=== PATIENT | female | born 1975 | race Caucasian/White ===

== ENCOUNTER 2022-02-28 16:34 | Emergency (ER) | payer BC, SELFPAY ==
--- NOTE | 2022-02-28 16:58 | ED.EYEPROB ---
HPI - Eye Problem General Chief complaint: Eye Problems Stated complaint: eye irritation Time Seen by Provider: 02/28/22 16:58 Source: patient Mode of arrival: ambulatory Limitations: no limitations History of Present Illness HPI Narrative: Ms. Ann is a 46-year-old female patient presenting to the clinic today with complaints of eye irritation and sores on her face. She reports that her daughter was positive for a bacterial staph infection. She reports that she has had some green eye drainage today and irritation of the right eye as well as some scabbed over sores to the right side of the orbit/temporal. She denies any fever or chills. Related Data Home Medications Medication Instructions Recorded Confirmed budesonide 1 mg/2 mL suspension 0.5 mg inhalation DIRECTED 02/28/22 02/28/22 for nebulization (Pulmicort) montelukast 10 mg tablet 10 mg DAILY 02/28/22 02/28/22 Allergies Allergy/AdvReac Type Severity Reaction Status Date / Time SHELLFISH Allergy Mild Uncoded 02/10/17 10:20 Review of Systems Review of Systems: Pertinent positives per HPI. Patient denies any fever, chills, rash, headache, visual changes, dizziness, cough, runny nose, sore throat, shortness of breath, chest pain, palpitations, nausea, vomiting, diarrhea, constipation, abdominal pain, or any urinary issues. PMFSH Comments At the time of my signature, I reviewed and agree with the nursing past medical, surgical, social, and family history. There is no relevant family history pertinent to the patient complaint. Exam Narrative: General: Well-developed, well nourished, in no apparent distress Head: Normocephalic, atraumatic, red mildly raised scaly yellow skin sores that are tender to palpation to the right temporal/orbit Eyes: Pupils equally round and reactive to light bilaterally, EOM intact, left sclera and conjunctive clear, right sclera and conjunctive a injected with green mucopurulent discharge, lids normal Ears: TMs intact and clear, ear canals clear, no drainage, grossly hearing normal. Nose: Nares patent, no discharge, no inflammation, no sinus tenderness. Mouth: Oropharynx without lesions or masses, good dentition, MMM. Neck: Supple, trachea midline, no enlargement of anterior or posterior cervical nodes, no thyroid masses or goiter palpable. Cardio: Regular rate and rhythm, s1 and s2 normal, no murmur appreciated. Resp: Clear to auscultation bilaterally anteriorly and posteriorly, no rhonchi, rales, wheezing or rubs Course Course Emergency Course: Portions of this record may have been created with voice recognition software. Level of Care: Express Care Visit Vital Signs Vital signs: Vital signs reviewed MDM - Eye Problem MDM Narrative Medical decision making narrative: At the time of visit patient is resting comfortably on the exam table I suspect that she has a bacterial skin infection as well as bacterial conjunctivitis. I will send her in a prescription for some mupirocin cream and Polytrim eyedrops. Supportive measures were discussed with the patient she voiced understanding of discharge instructions and agrees to treatment plan. Differential Diagnosis Differential diagnosis: Likely conjunctivitis and other (Skin infection) Discharge Plan Discharge Clinical Impression: Bacterial infection of skin, Bacterial conjunctivitis Patient Disposition: Home, Self-Care Condition: Stable Instructions: Antibiotic Form, Conjunctivitis (ED) Additional Instructions: Apply mupirocin cream as prescribed Polytrim eyedrops as prescribed Practice good handwashing techniques Follow-up with your PCP in 3 to 5 days if symptoms persist or sooner if they worsen. Prescriptions: New polymyxin B sulf-trimethoprim [Polytrim] 10,000 unit- 1 mg/mL drops 1 drp RIGHT EYE Q3H 7 Days Qty: 10 0RF Rx Instructions: while awake; do not exceed 6 doses in 24 hours mupirocin 2 % ointment 1 applic topical B
[2022-02-28 17:01] VITALS: BP 139/86; PULSE 93; RESP 18; TEMP 36.7; O2SAT 98
== END 2022-02-28 17:15 | disposition home or self-care (01) ==
PROVIDERS: Emergency Provider Nurse Practitioner Family; PCP Family Medicine
DX: H10.9 Unspecified conjunctivitis (principal); L08.9 Local infection of the skin and subcutaneous tissue, unspecified; B96.89 Other specified bacterial agents as the cause of diseases classified elsewhere; J45.909 Unspecified asthma, uncomplicated
CPT/HCPCS: 99213; G0463

== ENCOUNTER 2023-06-12 18:12 | Emergency (ER) | payer BC, SELFPAY ==
--- NOTE | ~2023-06-12 | XR_ITS ---
EXAMINATION: XR chest 2V DATE: 06/12/2023 18:31 INDICATION: 10 days of cough and congestion TECHNIQUE: PA and lateral views of the chest were obtained. COMPARISON: None FINDINGS: The lungs are clear with no focal airspace opacities, pulmonary edema, pleural effusion or pneumothor ax. The cardiomediastinal silhouette is normal. Moderate thoracic spondylosis. IMPRESSION: 1. No acute cardiopulmonary disease. Reviewed, dictated and finalized at location [facility]
--- NOTE | 2023-06-12 18:13 | ED.URI ---
HPI - URI/Sore Throat General Chief Complaint: Upper Respiratory Infection Stated Complaint: Congestion,Cough,Runny Nose Time Seen by Provider: 06/12/23 18:18 Source: patient, RN notes reviewed and old records reviewed Mode of arrival: ambulatory Limitations: no limitations History of Present Illness HPI Narrative: 47-year-old female presents to the [facility] with complaints of cough, congestion, runny nose for 10 days. Has tried DayQuil. Has been using prescribed medications such as albuterol singular with no improvement. Denies any fever, chest pain, abdominal pain. No nausea vomiting or diarrhea. Related Data Home Medications Medication Instructions Recorded Confirmed albuterol sulfate 90 mcg/actuation 2 puff inhalation PRN PRN 06/12/23 06/12/23 aerosol inhaler Shortness Of Breath Or Wheezing budesonide-formoterol HFA 160 2 inh inhalation DAILY 06/12/23 06/12/23 mcg-4.5 mcg/actuation aerosol inhaler (Symbicort) montelukast 10 mg tablet 10 mg PO HS 06/12/23 06/12/23 Allergies Allergy/AdvReac Type Severity Reaction Status Date / Time iodine AdvReac Mild Hives Verified 06/12/23 18:27 SHELLFISH AdvReac Mild Hives Uncoded 06/12/23 18:22 Review of Systems Review of Systems: All systems reviewed & are unremarkable except as noted in HPI and below Constitutional: Constitutional: Reports no additional constitutional complaints Eyes: Eyes: Reports no additional eye complaints ENT: Reports as per HPI Cardiovascular: Cardiovascular: Reports no additional cardiovascular complaints, Denies chest pain and Denies dyspnea Respiratory: Respiratory: Reports as per HPI, Reports chest congestion, Reports cough and Denies dyspnea Gastrointestinal: Gastrointestinal: Reports no additional gastrointestinal complaints, Denies abdominal pain, Denies nausea and Denies vomiting Musculoskeletal: Musculoskeletal: Reports no additional musculoskeletal complaints Integumentary/Breasts: Skin/Breast: Reports system reviewed and no additional complaints, except as docu Neurologic: Reports system reviewed and no additional complaints, except as documented Psychiatric: Psychiatric: Reports no additional psychiatric complaints Allergic/Immunologic: Allergic/Immunologic: Reports no additional allergic/immunologic complaints [facility] Past Medical History Medical History (Updated 06/12/23 @ 19:55 by Roselia Bermudez, RESIDENT MEDICAL OFFICER) Asthma Comments At the time of my signature, I reviewed and agree with the nursing past medical, surgical, social, and family history. There is no relevant family history pertinent to the patient complaint. Exam Const: General: cooperative, healthy appearing, comfortable, no acute distress, well developed, alert and well nourished Nutritional Appearance: well nourished and obese Orientation/consciousness: patient oriented x3 Limitations: no limitations HENMT: Head: normal to inspection Ears: hearing grossly normal bilaterally, external ears normal, TM's normal bilaterally, EAC's normal, mastoids normal and no periauricular adenopathy Face/Nose/Sinus: Normal external nose present, Normal nares present, Normal nasal mucous membranes and turbinates present, normal facial exam and face symmetric Face and sinus: normal facial exam and face symmetric Mouth: Yes Normal oral and palatal mucosa present, Yes lip normal and Yes moist mucous membranes Throat: posterior oropharynx normal, tonsils normal and uvula midline Eyes: General: appearance normal, both eyes and all related structures Alignment and Position: alignment normal Periorbital: periorbital findings normal Pupils: Equal, round and reactive pupils present EOM: EOMs intact bilaterally Neck: Neck: normal visual inspection, full ROM, no lymphadenopathy and no meningeal signs Chest: Chest palpation & inspection: normal inspection of the chest Resp: Effort & Inspection: normal respiratory effort and able to speak in complete sentences Auscultation: no crackle
[2023-06-12 18:15] VITALS: BP 143/77; PULSE 100; RESP 20; TEMP 35.9; O2SAT 99
== END 2023-06-12 18:52 | disposition home or self-care (01) ==
PROVIDERS: Emergency Provider Nurse Practitioner; PCP Family Medicine
DX: J40 Bronchitis, not specified as acute or chronic (principal); J45.909 Unspecified asthma, uncomplicated
CPT/HCPCS: 71046; 99213; G0463

== ENCOUNTER 2023-12-01 12:01 | Emergency (ER) | payer BC, SELFPAY ==
[2023-12-01 12:08] VITALS: BP 137/85; PULSE 83; RESP 16; TEMP 36.7; O2SAT 99
--- NOTE | 2023-12-01 12:15 | ED.EYEPROB ---
HPI - Eye Problem General Chief complaint: Eye Problems Stated complaint: Face and Eye Swelling Time Seen by Provider: 12/01/23 12:01 Source: patient Mode of arrival: ambulatory Limitations: no limitations History of Present Illness HPI Narrative: Patient is a 47-year-old female who presents with eye redness, itching and irritation since Monday night. Patient was outside watching her kids play sports in grass. Patient has history of asthma and allergies. Patient allergy shots as a child. Patient takes daily Singulair. Denies any tongue lip swelling, shortness of breath or throat closing. Related Data Home Medications Medication Instructions Recorded Confirmed albuterol sulfate 90 mcg/actuation 2 puff inhalation PRN PRN 06/12/23 12/01/23 aerosol inhaler Shortness Of Breath Or Wheezing budesonide-formoterol HFA 160 2 inh inhalation DAILY 06/12/23 12/01/23 mcg-4.5 mcg/actuation aerosol inhaler (Symbicort) montelukast 10 mg tablet 10 mg PO HS 06/12/23 12/01/23 Allergies Allergy/AdvReac Type Severity Reaction Status Date / Time iodine AdvReac Mild Hives Verified 12/01/23 12:05 SHELLFISH AdvReac Mild Hives Uncoded 12/01/23 12:05 Review of Systems Review of Systems: All systems reviewed & are unremarkable except as noted in HPI and below Constitutional: Constitutional: Denies body ache(s), Denies fever(s), Denies headache(s), Denies malaise and Denies weakness Eyes: Eyes: Denies blurry vision, Denies eye discharge, Reports irritation, Reports itchy eyes, Denies loss of vision and Denies eye pain ENT: Denies otalgia, Denies headache(s), Denies nasal discharge, Denies sinus pain and Denies sore throat Cardiovascular: Cardiovascular: Denies chest pain, Denies irregular heart rhythm and Denies dyspnea Respiratory: Respiratory: Denies dyspnea Gastrointestinal: Gastrointestinal: Denies abdominal pain, Denies diarrhea, Denies nausea and Denies vomiting Musculoskeletal: Musculoskeletal: Denies back pain, Denies myalgias and Denies arthralgias Integumentary/Breasts: Skin/Breast: Denies pruritus and Denies rash Neurologic: Denies headache(s), Denies loss of vision and Denies weakness Psychiatric: Psychiatric: Reports no additional psychiatric complaints Allergic/Immunologic: Allergic/Immunologic: Reports itchy eyes PMFSH Past Medical History Medical History Asthma Comments At time of signature, agree with nursing past medical, surgical, social and family history. There is no relevant family history pertinent to the presenting complaint. Exam Const: General: cooperative, healthy appearing, comfortable, no acute distress and well nourished Nutritional Appearance: well nourished Orientation/consciousness: patient oriented x3 Limitations: no limitations HENMT: Head: normal to inspection, normocephalic and atraumatic Ears: external ears normal Face/Nose/Sinus: Normal external nose present, normal facial exam and face symmetric Face and sinus: normal facial exam and face symmetric Mouth: Yes lip normal Eyes: General: appearance normal, both eyes and all related structures Visual [place]: normal visual [place] by confrontation Alignment and Position: alignment normal and position normal Periorbital: periorbital findings abnormal bilateral periorbital erythema Eyelids: eyelids normal Conjunctivae: conjunctivae normal Sclera: sclerae normal Pupils: Equal, round and reactive pupils present EOM: EOMs intact bilaterally Direct Ophthalmoscopy: no photophobia Other: No hyphema, no foreign body under the lids. Neck: Neck: normal visual inspection, full ROM, no lymphadenopathy and no meningeal signs Chest: Chest palpation & inspection: normal inspection of the chest Resp: Effort & Inspection: normal respiratory effort and able to speak in complete sentences Auscultation: clear to auscultation bilaterally Cardio: Rate: regular rate Rhythm: regula
== END 2023-12-01 12:20 | disposition home or self-care (01) ==
PROVIDERS: Emergency Provider Nurse Practitioner Family; PCP Family Medicine
DX: T78.40XA Allergy, unspecified, initial encounter (principal); J45.909 Unspecified asthma, uncomplicated
CPT/HCPCS: 99213; G0463

== ENCOUNTER 2024-07-22 14:08 | Emergency (ER) | payer BC, SELFPAY ==
[2024-07-22 15:16] VITALS: BP 139/85; PULSE 108; RESP 20; TEMP 36.6; O2SAT 99
--- NOTE | 2024-07-22 15:54 | ED.URI ---
HPI - URI/Sore Throat General Chief Complaint: Upper Respiratory Infection Stated Complaint: cold/sinus infection Time Seen by Provider: 07/22/24 15:54 Source: patient Mode of arrival: ambulatory Limitations: no limitations History of Present Illness HPI Narrative: 48-year-old female with a history of asthma presented for complaint of cold symptoms for over 1 week. She states the cough became more productive over the last 2 days. Endorses occasional shortness of breath and wheezing, also reporting pressure to the face and above the teeth. Has been using albuterol and DayQuil/NyQuil for symptoms. She states [id number] medicine is no longer helping. Denies nausea, vomiting, diarrhea, lethargy or fever. Related Data Home Medications ?Medication ?Instructions ?Recorded ?Confirmed ?Last Taken ?Type albuterol sulfate 90 mcg/actuation 2 puff inhalation PRN PRN 06/12/23 12/01/23 Unknown History aerosol inhaler Shortness Of Breath Or Wheezing budesonide-formoterol HFA 160 2 inh inhalation DAILY 06/12/23 12/01/23 Unknown History mcg-4.5 mcg/actuation aerosol inhaler (Symbicort) montelukast 10 mg tablet 10 mg PO HS 06/12/23 12/01/23 Unknown History Allergies Allergy/AdvReac Type Severity Reaction Status Date / Time iodine AdvReac Mild Hives Verified 07/22/24 15:57 SHELLFISH AdvReac Mild Hives Uncoded 07/22/24 15:57 Review of Systems Review of Systems: per HPI All systems reviewed & are unremarkable except as noted in HPI and below PMFSH Past Medical History Medical History Asthma Comments At time of signature, I have reviewed and agree with nursing past medical, surgical, social and family history unless otherwise noted. Please see nursing chart for further information. There is no relevant family history pertinent to the presenting complaint Exam Narrative: GENERAL: Well-appearing, in no acute distress. EYES: EOMI. No redness or drainage. Conjunctivae normal. ENT: Mucous membranes pink and moist. rhinorrhea. TMs normal bilaterally. Throat normal. Uvula midline. NECK: Normal AROM. Supple. CHEST: No respiratory distress, speaks full sentences without difficulty. Faint scattered wheezing to upper lobes. HEART: Regular rate and rhythm. No murmur appreciated. SKIN: Warm, dry, no rash. Capillary refill normal. Normal skin turgor. NEURO: Alert and oriented x3. Gait steady. PSYCH: Normal affect. Course Course Emergency Course: Patient is aware of diagnosis, understands and agrees to treatment plan. Anticipatory guidance given. Patient agrees to follow-up as directed and is aware of reasons to seek care at the emergency department. Portions of this record may have been created with voice recognition software Level of Care: Express Care Visit Vital Signs Vital signs: Vital Signs Temperature 97.9 F 07/22/24 15:16 Pulse Rate 108 H 07/22/24 15:16 Respiratory Rate 20 07/22/24 15:16 Blood Pressure 139/85 07/22/24 15:16 Pulse Oximetry 99 07/22/24 15:16 Oxygen Delivery Room Air 07/22/24 15:16 Temperature 97.9 F 07/22/24 15:16 Pulse Rate 108 H 07/22/24 15:16 Respiratory Rate 20 07/22/24 15:16 Blood Pressure 139/85 07/22/24 15:16 Pulse Oximetry 99 07/22/24 15:16 Oxygen Delivery Room Air 07/22/24 15:16 MDM - URI/Sore Throat MDM Narrative Medical decision making narrative: Discussed physical exam findings c/w sinusitis. Rx abx and steroid. Advised supportive measures and signs/symptoms to go to the ER. Pt is appropriate for outpt treatment and f/u. Differential Diagnosis Differential diagnosis: Likely upper respiratory infection, otitis media, sinusitis, viral infection, bronchitis and other (Asthma exacerbation, pneumonia) Discharge Plan Discharge Clinical Impression: Sinusitis Patient Disposition: Home, Self-Care Condition: Stable Instructions: Antibiotic Form, Rhinosinusitis (ED) Additional Instructions: Take antibiotic and steroid as directed Continue albuterol inhaler Recommendations: Flonase spray and Zyrtec (or Claritin/Shaneka) over the counter Cough syrup may cause drowsiness; avoid driving or take it at night time. Tylenol 1000mg every 8 hours as needed for pain Symptomatic treatment includes: rest, fluids, and increase humidity of the air at home. Follow up with your primary care provider in 1 week. Go to the ER for worsening symptoms or concerns. Patient Language: Ecuadorean Prescriptions: New methylprednisolone [Medrol (Rex)] 4 mg tablets,dose pack See Rx Instructions .ROUTE .COMPLEX Qty: 21 0RF Rx Instructions: orally per package directions amoxicillin-pot clavulanate 875-125 mg tablet 1 tablet PO Q12H 7 Days Qty: 14 0RF No Action montelukast 10 mg tablet 10 mg PO HS albuterol sulfate 90 mcg/actuation HFA aerosol inhaler 2 puff INHALATION PRN PRN (Reason: Shortness Of Breath Or Wheezing) budesonide-formoterol [Symbicort] 160-4.5 mcg/actuation HFA aerosol inhaler 2 inh INHALATION DAILY famotidine 20 mg tablet 20 mg PO DAILY 14 Days Qty: 14 0RF Follow-up/Referrals: Tomás,Aydin Padilla MD [Primary Care Provider] - Time of Disposition: 16:02
== END 2024-07-22 16:04 | disposition home or self-care (01) ==
PROVIDERS: Emergency Provider Nurse Practitioner Family; PCP Family Medicine
DX: J32.9 Chronic sinusitis, unspecified (principal)
CPT/HCPCS: 99213; G0463